=== PATIENT | female | born 1970 | race Caucasian/White ===

== ENCOUNTER 2018-09-06 06:18 | Day surgery (SDC) | payer OTHER, SELFPAY ==
[2018-09-02 14:15] VITALS: BMI 34.9
[2018-09-06] VITALS (23 sets, daily range): BP systolic 88–154; BP diastolic 50–107; PULSE 86–122; RESP 8–28; TEMP 36.4–37.4; O2SAT 91–99; BMI 47.3
--- NOTE | 2018-09-06 | DI.RAD.S_ITS ---
PROCEDURE: XR FOOT LT MIN 3V INDICATIONS: FLAT FOOT REPAIR TECHNIQUE: 2 views of the foot were acquired. COMPARISON: [facility] [place], MR, MR ANKLE LEFT WITHOUT CONTRAST, 08/20/2018, 10:14. [facility] [place], CR, XR FOOT 3 VIEWS WEIGHT BEARING BILATERAL, 07/31/2018, 9:14. FINDINGS: Intraoperative fluoroscopic images demonstrate calcaneal fixation. In addition, hardware is noted within the medial cuneiform, first and second metatarsals. IMPRESSION: Intraoperative images as above. Dictated by: Thais Yung M.D. on 09/06/2018 at 16:23 Approved by: Thais Yung M.D. on 09/06/2018 at 16:26
[2018-09-06] MEDS: LACTATED RINGERS 1,000 ML 42 ML IV ×3 (07:30→16:19)
--- NOTE | 2018-09-06 07:32 | PM.PREOP ---
Pre-operative Note Interval Note Pre-op Check: Yes History & Physical Reviewed by Physician and Yes Exam Performed Changes: No
[2018-09-06] MEDS: CEFAZOLIN 2 GM/100 ML FROZ.PIGGY IV ×3 (07:42→21:32)
[2018-09-06] MEDS: CEFAZOLIN VIAL 1 GM in SODIUM CHLORIDE 0.9% 100 ML 200 ML IV (07:42)
--- NOTE | 2018-09-06 08:23 | SUR.OPER ---
Lateral on moreau bag, head on pillow, gel axillary roll in place, bottom leg bent with gel pad under knee to foot, upper leg straight and supported with pillows. Upper arm supported by pillows and secured over bottom arm to padded arm board. Safety belt at abdomen, tape over blanket lower legs and hips
--- NOTE | 2018-09-06 08:25 | SUR.OPER ---
Supine on padded OR bed, head on pillow, arms secured on padded arm boards at <90 degrees abduction, legs uncrossed, safety belt at thigh, tape over blanket over lower legs.
[2018-09-06] MEDS: THROMBIN (BOVINE) 5,000 UNIT VIAL 5000 UNIT TOP (10:21)
[2018-09-06] MEDS: CEFAZOLIN VIAL 1 GM in SODIUM CHLORIDE 0.9% 100 ML IV (11:41)
--- NOTE | 2018-09-06 14:24 | SUR.OPER ---
family notified at 1330 about closing starting.
[2018-09-06] MEDS: BUPIVACAINE 0.25% (PF) VIAL 30 ML INJ (14:39)
[2018-09-06] MEDS: HYDROMORPHONE 2 MG INJ 0.5 MG IV ×3 (15:09→15:23)
[2018-09-06] MEDS: ONDANSETRON 4 MG/2 ML INJ IV (15:10)
--- NOTE | 2018-09-06 15:13 | SUR.PHASEI ---
Pt arrived moaning, hr 110s. Medicated with dilaudid per Dr. Olsen. o2 sat 89-91%ra, 4LNC applied.
[2018-09-06] MEDS: METOCLOPRAMIDE 10 MG/2 ML INJ IV (15:24)
[2018-09-06] MEDS: MIDAZOLAM 2 MG/2 ML VIAL IV (15:32)
--- NOTE | 2018-09-06 15:43 | SUR.PHASEI ---
Popliteal nerve block done by Dr. Olsen. Pt turned to her left side for the procedure and medicated with versed. Tolerated procedure well. O2 in place.
--- NOTE | 2018-09-06 15:50 | SUR.PHASEI ---
Nerve block from [id number]
--- NOTE | 2018-09-06 15:59 | SUR.PHASEI ---
Pt wakes and moans but then falls back asleep quickly.
--- NOTE | 2018-09-06 16:05 | SUR.PHASEI ---
Pt's spouse notified regarding patient status
[2018-09-06] MEDS: fentaNYL 100 MCG/2 ML INJ 50 MCG IV ×2 (16:19→16:32)
[2018-09-06] MEDS: LORazepam 2 MG/ML SYRINGE 0.5 MG IV ×2 (16:40→19:34)
--- NOTE | 2018-09-06 16:41 | SUR.PHASEI ---
Pt awake, moaning. C/o nausea. Medicated with Lorazepam per Dr. Moyer. Dr Moyer spoke to Dr. Trevino, admit orders pending.
--- NOTE | 2018-09-06 17:04 | SUR.PHASEI ---
Report called to Charla Moffett.
--- NOTE | 2018-09-06 17:41 | SUR.PHASEI ---
Pt transferred to the floor. Report given to Charla Moffett. VS stable. Pt transferred to the bed by slider board. Pt. intermittently retching and teary, c/o pain. IV saline locked. Ariadne CDI. Belongings bag in room. Spouse present.
[2018-09-06] MEDS: ONDANSETRON 4 MG ODT PO ×2 (17:42→23:50)
[2018-09-06] MEDS: OXYCODONE/ACETAMINOPHEN 5/325 TABLET 2 TAB PO ×2 (17:46→23:50)
[2018-09-06] MEDS: LACTATED RINGERS 1,000 ML 100 ML IV (18:06)
--- NOTE | 2018-09-06 18:27 | PC.NURSE ---
Pt to room 228 from PACU awake and retching without emesis. Slider board to transfer pt to bed. LLE elevated on multiple pillows to promote comfort. Pt is moaning when awake and tearful. Administered ODT prior to percocet for pain. Declines any oral intake other than ice chips and water. Ice to LLE. Spouse is present, attentive and involved in pt's care. Scripts given to spouse to fill prior to pt's discharge.
[2018-09-06] MEDS: HYDROMORPHONE 2 MG TABLET PO ×2 (19:34→22:10)
--- NOTE | 2018-09-06 19:44 | PC.NURSE ---
Pt has been able to sleep, but is now awake and crying in pain. Rates 15/10. Administered ativan to treat nausea and dilaudid po for pain. Pt is able to adjust position slightly in bed to promote comfort to LLE. LLE remains elevated with ice in place. Pt does report positive sensation to toes to left foot.
--- NOTE | 2018-09-06 20:30 | PM.PNPO.1 ---
Subjective Date Patient Seen: 09/06/18 Time Patient Seen: 18:31 Interval history: The patient is a 48-year-old female status post left flatfoot reconstruction and left stage IV flatfoot reconstruction with deltoid reconstruction, medial displacement calcaneal osteotomy, gastroc lengthening, medial cuneiform osteotomy, flexor digitorum longus transfer to the navicular and posterior tibialis tendon debridement. Patient was admitted to the acute care under observation for uncontrolled pain postoperatively. Her postop block does not appear to be working. Patient complains of pain in her foot and back of her leg. This is somewhat better after some antianxiety medications as well as IV pain medications. Patient endorses sensation to her toes and is able to lift her leg and wiggle her toes. Exam Vital Signs (past 8 hours): - 09/06/18 15:05 09/06/18 15:10 09/06/18 15:15 Temperature 97.6 F Pulse Rate 114 H 108 H 104 H Respiratory Rate 17 15 12 Blood Pressure 122/63 104/60 108/71 Pulse Oximetry 93 91 94 09/06/18 15:20 09/06/18 15:25 09/06/18 15:30 Temperature Pulse Rate 106 H 107 H 110 H Respiratory Rate 11 L 8 L 16 Blood Pressure 91/55 L 88/50 L 153/68 H Pulse Oximetry 94 94 95 09/06/18 15:35 09/06/18 15:40 09/06/18 15:51 Temperature Pulse Rate 106 H 107 H 105 H Respiratory Rate 8 L 10 L 9 L Blood Pressure 126/84 96/53 L 100/58 L Pulse Oximetry 93 92 94 09/06/18 16:00 09/06/18 16:11 09/06/18 16:20 Temperature Pulse Rate 107 H 107 H 111 H Respiratory Rate 9 L 10 L Blood Pressure 98/58 L 96/61 103/65 Pulse Oximetry 95 96 09/06/18 16:36 09/06/18 16:50 09/06/18 17:00 Temperature Pulse Rate 122 H 102 H 103 H Respiratory Rate 20 9 L 10 L Blood Pressure 108/74 118/79 114/72 Pulse Oximetry 96 94 95 09/06/18 17:20 09/06/18 18:00 09/06/18 18:30 Temperature 98.1 F 98.4 F 98.6 F Pulse Rate 111 H 106 H 112 H Respiratory Rate 28 H 22 28 H Blood Pressure 154/80 H 127/80 154/107 H Pulse Oximetry 95 96 95 09/06/18 18:35 09/06/18 19:58 Temperature 98.7 F Pulse Rate 103 H Respiratory Rate 24 Blood Pressure 125/59 L Pulse Oximetry 95 97 Oxygen Delivery Method Nasal Cannula Oxygen Flow Rate 2 Narrative Exam Narrative: Alert and oriented female answers questions appropriately. Appears in moderate distress complains of pain in her foot and calf. She is able to demonstrate active wiggling of her toes. Toes have brisk capillary refill and warm well perfused. Sensation grossly intact to light touch. Calf is soft. Able to flex and extend knee. Pulse rate mild tachycardia. Breathing is unlabored. Afebrile. Assessment & Plan Post-op Postoperative Procedures Operation Date: 09/06/18 07:45 Actual Procedures Side Surgeon p Gastrocnemius Recession, Reconstruction of ligament,deltoid. Transfer tendon flexor digitorum longus, Repair tendon tibialis posterior Left Jaymie Trevino MD s Calcaneal Osteotomy, Cotton Osteotomy Left Jaymie Trevino MD Postoperative day: 0 Postoperative status: marginal pain control Postoperative status narrative: Admitted for postoperative pain and ineffective peripheral nerve block Postoperative plan: routine post-op care Postoperative plan narrative: Patient will be nonweightbearing on the left lower extremity. She will have pain control with Percocet she also has oral Dilaudid available for breakthrough pain and IV pain medication. Patient also has Valium available for spasms. And will get IV Toradol had Q 6 hr while in the hospital for no more than 5 days. If she is discharged before 5 days she will get the remainder of the days as a 5 day oral Toradol prescription. She will start aspirin 325 mg daily for DVT prophylaxis on postop day 1. She will also utilize SCDs on the contralateral extremity while in the hospital. She will receive 24 hr of postoperative antibiotics Time Spent With Patient less than 15 minutes Quality VTE Deep Vein Thrombosis/Pulmonary Embolism Present on Admission: No
--- NOTE | 2018-09-06 21:17 | RT ---
Patient with nonsmoking history. No smoking cessation intervention needed.
--- NOTE | 2018-09-06 21:19 | PC.NURSE ---
Pt resting quietly in bed with LLE elevated on multiple pillows. 02 2l per nc in place with continuous pulse oximeter in place. Sats 96%. Rouses easily to voice. Offered oral fluids and foods and declines. Taking sips water/ice chips.
--- NOTE | 2018-09-06 21:27 | PM.OP.1 ---
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 Morbid obesity ICD E66.01 Tear deltoid ligament of left ankle, subsequent encounter ICD S93.422D Post-op diagnosis: same Procedure & Clinicians Procedure: Reconstruction secondary with allograft, ligament, deltoid, ankle left CPT 56005 Calcaneal osteotomy left CPT code 05750 Transfer, tendon, flexor digitorum longus, left CPT code 36731 Gastroc recession, left CPT 03762 Cotton osteotomy left foot, left CPT code 01982 Debridement posterior tibialis tendon left Same procedure as scheduled: Yes Indications: Patient is a 48-year-old female with a history of stage JAYNE flatfoot deformity with varus angulation. She has foot pain and deformity and has failed conservative treatment. She has been indicated for reconstruction to prevent further damage to her ankle joint as a joint sparing procedure and also for reconstruction for pain relief. The patient has an incompetent deltoid ligament secondary to previous trauma and progressive traumatic flatfoot. She has a valgus ankle deformity. She has minimal degenerative change on MRI and a flexible deformity. The patient has been indicated for deltoid reconstruction flatfoot reconstruction. He has also been indicated for a gastroc recession due to her gastroc equinus. Risks benefits and alternatives to the procedure were discussed with the patient in detail. Discussed that these risks include but are not limited to infection, malunion, nonunion, delayed union, wound healing problems, need for additional procedures, persistence of pain, nerve and vessel injury, progression of arthritis, painful hardware, DVT, pulmonary embolism, cardiopulmonary complications of general anesthesia, stroke paralysis or . Patient understands and agrees with the plan would like to proceed with surgery. Consent was signed in the office. Patient understands that bone and soft tissues typically heal over a 3-4 months but it may be 6-9 months for recovery back to most activities of daily living. Patient understands the importance of elevation above the heart level for the 1st 2-3 weeks after surgery for swelling and pain control. Also discussed risk factors for DVT. Patient does not have any history of thromboses or other risk factors other than the impending surgery. DVT prophylaxis will be 325 mg of aspirin daily for her period of nonweightbearing which would be approximately 6 weeks. Patient understands and agrees with the plan. Surgeon: Jaymie Trevino Metal Off Bearer: Juanita Lewis Anesthesia Type: General, Peripheral nerve block and Local Operative Notes Findings: The patient has valgus ankle instability and incompetent deltoid ligament as well as a valgus and pes planus deformity and gastroc contracture. When the forefoot and ankle are corrected the patient has residual forefoot supination. Operative findings: In the operating room the patient's ankle was up for dorsiflexed with knee extension. This was found to only get to neutral and the patient was noted to have approximately 20? of dorsiflexion with the knee bent therefore the patient was indicated for a gastroc recession. This was performed with excellent correction of the ankle range of motion to above 10? of dorsiflexion with the knee extended. The patient is valgus hindfoot deformity was addressed with a medial displacement calcaneal osteotomy stabilized by (2)6.7 mm cannulated Arthrex screws. The deltoid ligament was noted to be incompetent was copious scar tissue in this area and heterotopic ossification at the medial malleolus. This was excised and the deltoid was reconstructed utilizing the semi tendinosis allograft was fixed to the tibia with an ACL tight rope into the talus and calcaneus with bio tenodesis screws. The posterior tibialis tendon was noted to be extremely thickened to approximately 3 times its normal size with extensive tendinosis and backside longitudinal tearing. The tendon was excised and the FDL tendon was transferred to the navicular and secured using a 4.75 bio tenodesis screw. The posterior tibialis tendon was tenodesed to the FDL proximally. The patient was noted to have residual forefoot varus and a opening wedge osteotomy of the medial cuneiform was performed. This was fixed with a 8 mm cotton wedge osteotomy plate from Arthrex and four cortical screws. 1 cc of DBX was used to fill into the graft site. Closure Type: primary Specimen(s): none sent Implants & Drains: Arthrex bio tenodesis screws 4.75mm, 4.75mm, 4.75mm Arthrex ACL tight rope Allograft semi tendinosis 5mm x 22mm (2) Arthrex 6.7 cannulated screws 45 and 50mm short thread Applied: other (Splint) Estimated Blood Loss (mL): 50 Blood products transfused: none Tourniquet time (min): 120 Procedure in detail: In the preoperative holding area the patient was seen in the appropriate sites were marked. Informed consent was confirmed and final questions were answered. The patient was brought back to the operating room. Patient was positioned supine on the operating table and general anesthesia was administered. Following successful level of anesthesia the patient was examined the patient did have an gastroc contracture this was confirmed with 0? of dorsiflexion with the knee fully extended and approximately 15-20 degrees with the knee bent. Therefore a gastroc recession was selected. Patient was then prepped and positioned on the operative table on a beanbag in the lateral position with an axillary roll and a well-padded thigh tourniquet. An SCD was placed on the non operative leg. The surgical level was prepped and draped in the standard sterile fashion. An Esmarch bandage was utilized to exsanguinate the extremity and the tourniquet was raised on the thigh to 300 mm of mercury. Gastroc lengthening: A slightly medial to midline incision was marked out approximately 14 cm proximal to the proximal aspect of the heel. The incision was 4 cm long. This was carried down through subcutaneous tissue with care to avoid the sural nerve and vessel. The fascia was opened and the tendon was isolated from medial to lateral. This was then incised transversely in length and approximately 2.5 cm. This was then tacked down proximally. Incision was irrigated and closed with 2 O Vicryl deep and 4 O nylon in the skin. Medial icing calcaneus osteotomy. Incision was made along the lateral border of the calcaneus, staying posterior to the sural nerve and peroneal tendons. Dissection was carried through the skin subcutaneous tissues and then bluntly down to the level of the lateral wall of the calcaneus. Once we had good subperiosteal exposure the baby Hohmann retractors were placed around the calcaneal borders. And a transverse osteotomy was made across the body of the calcaneus. The osteotomy was carried gently through the medial wall and finished with osteotomes. Lamina ex assistant/program director was placed, the periosteum was elevated off the medial wall. The calcaneal width was measured and shifted approximately 6 mm. Then we percutaneously fixed this with 26.7 mm cannulated screws that were countersunk. This provided solid fixation and appropriate correction on intraoperative fluoroscopy. The excess bone was then trimmed and tamped along the lateral wall. Deep tissues were closed with 2 O Vicryl in the subcutaneous with 4 0 Monocryl on the skin with 4 O nylon. The posterior heel wounds were closed with 3 O nylon. Deltoid reconstruction: At this point the tourniquet was released. The patient was repositioned letting the beanbag down and rolling the patient to a supine position. Once appropriate time and passed the tourniquet was elevated again. Now the leg was able to externally rotate a medial incision was made which began initially approximately 6 cm above the medial malleolus extending posterior medially along the medial malleolus and posterior tibialis tendon on the medial border of the foot towards the 1st tarsometatarsal joint medially. This was carried down through the skin and subcutaneous tissue. There was copious scar tissue and callus and heterotopic bone at the medial aspect of the medial malleolus from previous trauma. As this was excised to expose the medial malleolus. The deltoid was of gross incompetence and the patient states ankle was in valgus alignment and unstable. The origins of the deep portion of the deltoid which was incompetent was located on the talus as well as the targeted start point for the medial tunnel on the tibia for the deltoid reconstruction. Additionally the posterior tibialis tendon sheath was opened the posterior tibialis tendon was noted to be very thickened and tendinotic and incompetent. This was tenotomized and retracted posterior and later excised. At the same time the FDL tendon was also exposed through the posterior tibialis tendon sheath proximally and then distally at the master knot of Otto. The FDL and F HL were tenodesed with a loose throw of 2 0 FiberWire just distal to the transection of the FDL distally. Once the exposure and these other tendons were isolated and retracted away from the deltoid reconstruction the calcaneal a deltoid tunnel at the sustentacular was exposed and located with the assistance of fluoroscopy to achieve a trajectory away from the subtalar joint and missing the osteotomy screws. Once the tunnel sites were established in the talus and calcaneus and tibia which was directed anterior laterally these were then appropriately reamed. Of note an 1st tibial passage attempt was felt to be too anterior in the tibia therefore this was pre drilled more proximal and lateral. The allograft was sized to a 5 by 22 mm and hamstring allograft. This was whipstitched in 1 end. Secured in the ACL tight rope this was measured to go through a a 6.5 mm tunnel there for the 6.5 mm Reamer was utilized in the tibia and drilled for approximately 40 mm. The graft tight rope were then passed through the tibia and to the lateral border of the tibia where fluoroscopic guidance demonstrated the button in appropriate position. Next the calcaneal tunnel was overdrilled with a 5 mm Reamer and the whipstitched ends of the allograft was passed through the calcaneus and out the lateral side. This was secured into the calcaneus with a 4.75 bio tenodesis screw. Unfortunately this bio tenodesis screw broke off during insertion. The graft was found to be securely affixed with approximately half the a bio tenodesis screw length and the screw was unable to be removed and exchanged but was felt to fix the tendon securely therefore it was left in place. Next attention turned to the talar hole which was overdrilled with a 5.5 mm drill and the talar limb was then whipstitched measured and cut placed through the talus. Sutures were used to pull this taunt of while a 4.75 bio tenodesis screw was placed. This achieved good tension in the deltoid and corrected the valgus alignment of the tibiotalar joint on fluoroscopy.\ FDL transfer: The previously harvested FDL tendon was then whip stitched using the fiber loop. Was measured easily passing through a 5 mm Sizer. Dissection was completed dorsum plantar on the navicular. Wire was placed from plantar medial to dorsal lateral on the navicular and checked on C-arm. This was then overdrilled to create a 5 mm tunnel. The sutures from the tendon graft were passed from medial to lateral through the navicular tunnel and out the dorsum of the foot. These were utilized to pull the graft into the tunnel and pulled tension what was considered cured with a 4.75 bio tenodesis screw this provided excellent motion and tension. The posterior tibialis tendon was then tenodesed to the FDL proximally. Cotton osteotomy medial cuneiform opening wedge osteotomy: The patient's forefoot was noted to have residual varus and supination. Because of her relatively intact articular surfaces a medial cuneiform opening wedge osteotomy was planned. This was initially attempted through the existing medial exposure however the tibialis anterior tendon was directly in the path of a midbody osteotomy therefore a separate dorsal medial incision over the medial cuneiform was made this was taken down between the extensor hallucis longus and hallucis brevis to bone. The joint surfaces proximal and distal were identified. A transverse osteotomy was made started with a sagittal saw with care to preserve the plantar periosteum this was slowly levered open with osteotomes followed by a distractor. Initially the bio Poncho edges from Arthrex were trialed and a 7.5 mm trial was placed which did provide some correction however there was still some play in this in order to get full supination correction. Unfortunately the 7.5 implant was not available. Therefore we made this which to the cotton wedge plate where it 8 mm plate was available this was trialed and provided excellent correction and stability. Therefore this was implanted and secured with 4 screws. The opening wedge from the osteotomy was filled with a DBX. Correction was evaluated on final fluoroscopic images confirming correction from all the procedures and excellent alignment. The tourniquet had been let down at this point thorough irrigation took place. The retinacula was closed with 2 O Vicryl the deep tissues were also closed with 2 O Vicryl subcutaneous closure of all incisions was done with 4 0 Monocryl and skin with a 4 O nylon and mel. A sterile bulky dressing and stirrup splint were applied and the patient was then transported to the recovery room in good condition. Complications: none Condition: stable Disposition: Acute Care Plan for aftercare: The patient had a postoperative peripheral nerve block performed in the PACU for postoperative pain control. The patient's postoperative nerve block did not appear to take affect and the patient was having on controlled pain. She was admitted to the acute care unit for pain control overnight with anticipation of discharge home in the morning. The patient will be nonweightbearing on the left lower extremity. She will keep it elevated above her heart level for the next 2-3 weeks for swelling and pain control. She will have p.o. and IV pain medications on the floor. She will have 24 hr of postoperative antibiotics. She will start DVT prophylaxis with 325 mg of aspirin daily on postoperative day 1.
[2018-09-06] MEDS: KETOROLAC 30 MG/ML VIAL IV (21:32)
[2018-09-06] MEDS: CEFAZOLIN 1 GM/50 ML FROZ.PIGGY IV (21:33)
[2018-09-06] MEDS: diazePAM 5 MG TABLET PO (22:10)
--- NOTE | 2018-09-06 22:20 | PC.NURSE ---
Reluctant to get out of bed to commode. Bedpan use and pt able to void without difficulty. States pain <6 and is more engaging and conversant. Moving LLE independently to achieve position of comfort. IV antibiotics infusing as ordered. SCD on RLE. Before this story writer could exit pt's room, pt becomes easily tearful and c/o pain 8/10. States increasing rapidly. Equally warm and pink exposed toes to left foot. Splint with tip wrap intact to LLE. Administered po dilaudid and po valium for spasms. IV dilaudid held as pt taking orals prior to this order being entered. Spouse remains attentive and present @ bedside.
[2018-09-07] VITALS: O2SAT 96
[2018-09-07] MEDS: LORazepam 2 MG/ML SYRINGE 0.5 MG IV (00:03)
[2018-09-07 04:01] VITALS: O2SAT 95
[2018-09-07] MEDS: LACTATED RINGERS 1,000 ML 100 ML IV (04:45)
[2018-09-07] MEDS: CEFAZOLIN 2 GM/100 ML FROZ.PIGGY IV (04:46)
[2018-09-07] MEDS: CEFAZOLIN 1 GM/50 ML FROZ.PIGGY IV (04:46)
[2018-09-07 05:11] VITALS: BP 115/64; PULSE 102; RESP 16; TEMP 37.2; O2SAT 93
[2018-09-07] MEDS: KETOROLAC 30 MG/ML VIAL IV (06:28)
[2018-09-07 07:58] VITALS: BP 133/55; PULSE 103; RESP 16; TEMP 36.8; O2SAT 95
[2018-09-07 08:05] VITALS: O2SAT 95
[2018-09-07] MEDS: HYDROMORPHONE 2 MG TABLET PO ×2 (08:20→10:59)
[2018-09-07] MEDS: ASPIRIN EC 325 MG TABLET PO (09:06)
--- NOTE | 2018-09-07 10:01 | PM.DS.1 ---
History of Present Illness Date Patient Seen: 09/07/18 Time Patient Seen: 10:02 Chief complaint: [id number] LEFT ANKLE Narrative: Details of the patient's H&P can be found like electronic chart. Discharge Providers Primary care physician: Tobin Simms MD Consults: 09/02/18 15:27 Consult to Anesthesiology Routine Comment: Please call patient re: 3 week post-op hoarseness Consulting Provider: Anesthesiologist Reason for consultation: See anesthesia review 09/06/18 07:03 Consult to Anesthesiology Routine Comment: Consulting Provider: Anesthesiologist Reason for consultation: Post operative pain managment Has provider been notified: No 09/06/18 16:45 Consult to Physical Therapy Evaluate & Treat Comment: Physician Instructions: Evaluate and Treat Discharge provider: Juanita Lewis PA-C Discharge Date: 09/07/18 Summary Discharge Diagnosis: Posterior tibialis tendon dysfunction of both lower extremities M 76.821 Equinus contracture of the ankle M24.573 Morbid obesity ICD E66.01 Tear deltoid ligament of left ankle, subsequent encounter ICD S93.422D Hospital Course: Patient was admitted and taken the operating room where she had left foot surgery by Dr. Trevino. She was admitted to the floor for pain control issues because her anesthesia block was not working. Postop day 1 patient was feeling well, was able to ambulate with physical therapy but nonweightbearing on the left lower extremity and able to urinate without difficulty. Patient was discharged home with postoperative pain medication. Aspirin 325 mg for DVT prophylaxis Zofran for nausea and Colace for constipation. She is to be nonweightbearing on left lower leg. She will follow up in office in 10-[address] Trevino. Status at Discharge Cognitive/behavioral status at discharge: Alert orient x3 Functional status at discharge: uses cane/walker Overall status at discharge: patient is progressing back to baseline Time Spent with Patient Less than 30 minutes Exam Vital Signs (past 8 hours): - 09/07/18 04:01 09/07/18 05:11 09/07/18 07:58 Temperature 99.0 F 98.3 F Pulse Rate 102 H 103 H Respiratory Rate 16 16 Blood Pressure 115/64 133/55 L Pulse Oximetry 95 93 95 09/07/18 08:05 Temperature Pulse Rate Respiratory Rate Blood Pressure Pulse Oximetry 95 Oxygen Delivery Method Room Air Oxygen Flow Rate 0 Narrative Exam Narrative: Patient is sitting in chair. Alert orient x3. Appears comfortable. Left lower leg and a postoperative splint. Can wiggle all toes. Full sensation in toes. Brisk capillary refill in toes. Discharge Plan Discharge Plan Patient Disposition: Home Discharge comment: Nonweightbearing on the lower extremity. Discharge Med Rec/Prescriptions Prescriptions: New aspirin 325 mg tablet,delayed release (DR/EC) 325 mg PO DAILY Qty: 42 RF: 0 docusate sodium [Colace] 100 mg capsule 100 mg PO BID Qty: 30 RF: 0 ondansetron [Zofran ODT] 4 mg tablet,disintegrating 4 mg PO Q6-8H PRN (Reason: nausea and vomiting) Qty: 10 RF: 1 hydromorphone 2 mg Tablet 2 mg PO Q4H PRN (Reason: Pain, Severe (7-10)) Qty: 42 RF: 0 Follow up/Referrals: Jaymie Trevino MD [Physician] - (Follow-up scheduled date and time. Contact the office with any issues or concerns.) Tobin Simms MD [Primary Care Provider] - Discharge Orders: Discharge (Order); Ordered 09/07/18 Ordered By: Jaymie Trevino Provider Discharge Instructions Diet: Diet as Tolerated Activity: Nonweightbearing left leg. Elevate. Other treatments: At-Home Instructions - Dr. Trevino Surgery: left flatfoot reconstruction Cast/Splint/Dressing Care Instructions 1) Keep cast/dressing clean and dry. 2) May bathe - but cast/dressing must remain dry. 3) Should the cast become wet, you need to come into emergency department or call your physician's clinic immediately for cast removal and replacement. Moisture can cause skin breakdown and lead to infection if left untreated. 4) Do not stick any sharp object down the cast to itch, as this can cause scrapes/cuts/punctures which can lead to infection. 6) Observe for increasing pain in the extremity with the cast, finger/toe-tips turning blue/purple, or numbness and tingling in your toes/fingers. Should any of these symptoms arise, you need to be seen immediately for evaluation of swelling and increasing compartment pressures within your affected extremity. 7) Keep your affected extremity elevated - Toes Above your Nose - This is cotto in the first two weeks after surgery to minimize swelling. 8) You may ice your extremity, being careful to prevent melting ice from saturating into the splint/cast. Activity No heavy lifting greater than 10 pounds. No driving while on narcotic pain medication. Do not get your dressing/cast/splint wet! You must remain non-weight bearing on your operative extremity. Use crutches or a walker for ambulation. No driving until you are otherwise instructed by your physician. This will be addressed at your first follow-up appointment. Discharge Pain Medications You will be given a prescription for pain medication. You should start taking this the same day after your surgery. Wean off as tolerated. Do not wait to take the pain medication until the pain is severe, as it will be difficult to catch up once this occurs. The pain medication usually reaches its full effect ~1 hour after ingesting. If you have been sent home on Colace, this medication should be taken until you are off all narcotic (i.e. Vicodin, Percocet, Oxycodone, etc) pain medications, to prevent constipation. You may also obtain this or another stool softener over the counter to prevent or alleviate constipation. Percocet or Vicodin have Tylenol in their ingredient lists. You must be careful not to exceed 3,000mg (3 grams) of Tylenol, from all sources, within a single 24-hr period. This means that you may not take more than 10 pills within a 24-hr period. Do NOT take Regular or Extra Strength Tylenol when taking your Percocet or Vicodin medications. -Some common side effects of the narcotic pain medications (Percocet, Oxycodone, Vicodin, etc.) include nausea and itching. Benadryl is a great over the counter medication that helps calm your stomach, decreases your anxiety levels, and minimizes the itching. You can easily purchase this at your local pharmacy as an hmdl-llb-yykqjkr medication. Please abide by the instructions as printed on the bottle. If your nausea persists, make sure to take small amounts of crackers or other handle machine operator foods. Follow-Up/Emergency Contacts Please call for an appointment in either [place] or [place], if one has not been scheduled. Follow up 2 week after surgery. [phone] apt: 09/20/18 1:20 PM [facility] [place] Contact the office if you have any of the following: Painful swelling or numbness Unrelenting pain Fever (over 101- it is normal to have a low grade fever for the first day or two following surgery) or chills Redness around the incisions Color changes Continuous bleeding or drainage from the incision (a small amount is expected) Excessive nausea or vomiting Difficulty breathing If you have an emergency that requires immediate attention, proceed to the nearest emergency room. Blood Clot Prophylaxis You will need to complete a total 6-week (42 days) course of Aspirin (325 mg daily) after surgery, to minimize the risk of blood clots following surgery. You may alternatively purchase or use itse-mio-gfiyair generic equivalent Aspirin. If you already have baby Aspirin (81mg) at home, you can take 4 baby Aspirin to total 324mg for the equivalent dose. Pain Medications: It is the policy of [facility] that narcotic medications will only be refilled during office hours. Additionally, due to the alarming rate of narcotic pain medication abuse/dependence, it has become necessary for physician practices to closely manage patient use of prescription narcotic pain relievers, such as Vicodin ([place]), Percocet, and Oxycodone products. Narcotic pain management in the postoperative period may not exceed 6 weeks. If narcotic pain management is required beyond 90 days, then a referral to a Chronic Pain Specialist will be made. If a request for a medication prescription has been made, the physician must review your chart prior to authorizing the request. Please be patient with office staff. If you call during patient hours, your call may not be returned until the end of the day. Dr. Jaymie Trevino [address] [email or web address] Skin/Wound/Dressing Care Report to your healthcare provider any signs of infection, such as:: chills, fever, night sweats, increased pain and unusual drainage Dressing: Keep dressing dry and intact Visit Report/Discharge Packet Instructions: How to Take Care of Your Cast, Hydromorphone Stand Alone Forms: Surgery Discharge Visit Report Forms: Stroke Signs & Symptoms Discharge Data Primary Care Provider: Tobin Simms Attending Provider: Jaymie Trevino VTE Deep Vein Thrombosis/Pulmonary Embolism Present on Admission: No
--- NOTE | 2018-09-07 10:05 | P.DS_ITS ---
History of Present Illness Date Patient Seen: 09/07/18 Time Patient Seen: 10:02 Chief complaint: [id number] LEFT ANKLE Narrative: Details of the patient's H&P can be found like electronic chart. Discharge Providers Primary care physician: Tobin Simms MD Consults: 09/02/18 15:27 Consult to Anesthesiology Routine Comment: Please call patient re: 3 week post-op hoarseness Consulting Provider: Anesthesiologist Reason for consultation: See anesthesia review 09/06/18 07:03 Consult to Anesthesiology Routine Comment: Consulting Provider: Anesthesiologist Reason for consultation: Post operative pain managment Has provider been notified: No 09/06/18 16:45 Consult to Physical Therapy Evaluate & Treat Comment: Physician Instructions: Evaluate and Treat Discharge provider: Juanita Lewis PA-C Discharge Date: 09/07/18 Summary Discharge Diagnosis: Posterior tibialis tendon dysfunction of both lower extremities M 76.821 Equinus contracture of the ankle M24.573 Morbid obesity ICD E66.01 Tear deltoid ligament of left ankle, subsequent encounter ICD S93.422D Hospital Course: Patient was admitted and taken the operating room where she had left foot surgery by Dr. Trevino. She was admitted to the floor for pain control issues because her anesthesia block was not working. Postop day 1 patient was feeling well, was able to ambulate with physical therapy but nonweightbearing on the left lower extremity and able to urinate without difficulty. Patient was discharged home with postoperative pain medication. Aspirin 325 mg for DVT prophylaxis Zofran for nausea and Colace for constipation. She is to be nonweightbearing on left lower leg. She will follow up in office in 10-[address] Trevino. Status at Discharge Cognitive/behavioral status at discharge: Alert orient x3 Functional status at discharge: uses cane/walker Overall status at discharge: patient is progressing back to baseline Time Spent with Patient Less than 30 minutes Exam Vital Signs (past 8 hours): - 09/07/18 04:01 09/07/18 05:11 09/07/18 07:58 Temperature 99.0 F 98.3 F Pulse Rate 102 H 103 H Respiratory Rate 16 16 Blood Pressure 115/64 133/55 L Pulse Oximetry 95 93 95 09/07/18 08:05 Temperature Pulse Rate Respiratory Rate Blood Pressure Pulse Oximetry 95 Oxygen Delivery Method Room Air Oxygen Flow Rate 0 Narrative Exam Narrative: Patient is sitting in chair. Alert orient x3. Appears comfortable. Left lower leg and a postoperative splint. Can wiggle all toes. Full sensation in toes. Brisk capillary refill in toes. Discharge Plan Discharge Plan Patient Disposition: Home Discharge comment: Nonweightbearing on the lower extremity. Discharge Med Rec/Prescriptions Prescriptions: New aspirin 325 mg tablet,delayed release (DR/EC) 325 mg PO DAILY Qty: 42 RF: 0 docusate sodium [Colace] 100 mg capsule 100 mg PO BID Qty: 30 RF: 0 ondansetron [Zofran ODT] 4 mg tablet,disintegrating 4 mg PO Q6-8H PRN (Reason: nausea and vomiting) Qty: 10 RF: 1 hydromorphone 2 mg Tablet 2 mg PO Q4H PRN (Reason: Pain, Severe (7-10)) Qty: 42 RF: 0 Follow up/Referrals: Jaymie Trevino MD [Physician] - (Follow-up scheduled date and time. Contact the office with any issues or concerns.) Tobin Simms MD [Primary Care Provider] - Discharge Orders: Discharge (Order); Ordered 09/07/18 Ordered By: Jaymie Trevino Provider Discharge Instructions Diet: Diet as Tolerated Activity: Nonweightbearing left leg. Elevate. Other treatments: At-Home Instructions - Dr. Trevino Surgery: left flatfoot reconstruction Cast/Splint/Dressing Care Instructions 1) Keep cast/dressing clean and dry. 2) May bathe - but cast/dressing must remain dry. 3) Should the cast become wet, you need to come into emergency department or call your physician's clinic immediately for cast removal and replacement. Moisture can cause skin breakdown and lead to infection if left untreated. 4) Do not stick any sharp object down the cast to itch, as this can cause scrapes/cuts/punctures which can lead to infection. 6) Observe for increasing pain in the extremity with the cast, finger/toe-tips turning blue/purple, or numbness and tingling in your toes/fingers. Should any of these symptoms arise, you need to be seen immediately for evaluation of swelling and increasing compartment pressures within your affected extremity. 7) Keep your affected extremity elevated - Toes Above your Nose - This is cotto in the first two weeks after surgery to minimize swelling. 8) You may ice your extremity, being careful to prevent melting ice from saturating into the splint/cast. Activity No heavy lifting greater than 10 pounds. No driving while on narcotic pain medication. Do not get your dressing/cast/splint wet! You must remain non-weight bearing on your operative extremity. Use crutches or a walker for ambulation. No driving until you are otherwise instructed by your physician. This will be addressed at your first follow-up appointment. Discharge Pain Medications You will be given a prescription for pain medication. You should start taking this the same day after your surgery. Wean off as tolerated. Do not wait to take the pain medication until the pain is severe, as it will be difficult to catch up once this occurs. The pain medication usually reaches its full effect ~1 hour after ingesting. If you have been sent home on Colace, this medication should be taken until you are off all narcotic (i.e. Vicodin, Percocet, Oxycodone, etc) pain medications, to prevent constipation. You may also obtain this or another stool softener over the counter to prevent or alleviate constipation. Percocet or Vicodin have Tylenol in their ingredient lists. You must be careful not to exceed 3,000mg (3 grams) of Tylenol, from all sources, within a single 24-hr period. This means that you may not take more than 10 pills within a 24-hr period. Do NOT take Regular or Extra Strength Tylenol when taking your Percocet or Vicodin medications. -Some common side effects of the narcotic pain medications (Percocet, Oxycodone , Vicodin, etc.) include nausea and itching. Benadryl is a great over the counter medication that helps calm your stomach, decreases your anxiety levels, and minimizes the itching. You can easily purchase this at your local pharmacy as an cvpa-cne-wkegblt medication. Please abide by the instructions as printed on the bottle. If your nausea persists, make sure to take small amounts of crackers or other auto fleet maintenance manager foods. Follow-Up/Emergency Contacts Please call for an appointment in either [place] or [place], if one has not been scheduled. Follow up 2 week after surgery. [phone] apt: 09/20/18 1:20 PM [facility] [place] Contact the office if you have any of the following: Painful swelling or numbness Unrelenting pain Fever (over 101- it is normal to have a low grade fever for the first day or two following surgery) or chills Redness around the incisions Color changes Continuous bleeding or drainage from the incision (a small amount is expected) Excessive nausea or vomiting Difficulty breathing If you have an emergency that requires immediate attention, proceed to the nearest emergency room. Blood Clot Prophylaxis You will need to complete a total 6-week (42 days) course of Aspirin (325 mg daily) after surgery, to minimize the risk of blood clots following surgery. You may alternatively purchase or use tdcy-wou-pneyddy generic equivalent Aspirin. If you already have baby Aspirin (81mg) at home, you can take 4 baby Aspirin to total 324mg for the equivalent dose. Pain Medications: It is the policy of [facility] that narcotic medications will only be refilled during office hours. Additionally, due to the alarming rate of narcotic pain medication abuse/dependence, it has become necessary for physician practices to closely manage patient use of prescription narcotic pain relievers, such as Vicodin ([place]), Percocet, and Oxycodone products. Narcotic pain management in the postoperative period may not exceed 6 weeks. If narcotic pain management is required beyond 90 days, then a referral to a Chronic Pain Specialist will be made. If a request for a medication prescription has been made, the physician must review your chart prior to authorizing the request. Please be patient with office staff. If you call during patient hours, your call may not be returned until the end of the day. Dr. Jaymie Trevino [address] [email or web address] Skin/Wound/Dressing Care Report to your healthcare provider any signs of infection, such as:: chills, fever, night sweats, increased pain and unusual drainage Dressing: Keep dressing dry and intact Visit Report/Discharge Packet Instructions: How to Take Care of Your Cast, Hydromorphone Stand Alone Forms: Surgery Discharge Visit Report Forms: Stroke Signs & Symptoms Discharge Data Primary Care Provider: Tobin Simms Attending Provider: Jaymie Trevino VTE Deep Vein Thrombosis/Pulmonary Embolism Present on Admission: No
--- NOTE | 2018-09-07 10:05 | PT.IIE ---
Current Diagnoses Morbid (severe) obesity due to excess calories (09/06/18) Contracture, unspecified ankle (09/06/18) Posterior tibial tendinitis, right leg (09/06/18) Posterior tibial tendinitis, left leg (09/06/18) Sprain of deltoid ligament of left ankle, subsequent encounter (09/06/18) Surgery Performed Operation Date: 09/06/18 07:45 Actual Procedures p Gastrocnemius Recession, Reconstruction of ligament,deltoid. Transfer tendon flexor digitorum longus, Repair tendon tibialis posterior(Left) - Jaymie Trevino MD s Calcaneal Osteotomy, Cotton Osteotomy(Left) - Jaymie Trevino MD Surgical History (Last Updated 09/02/18 @ 14:51 by Bia Jansen, RN) H/O: (Acute ~2001) History of removal of Port-a-Cath (Acute) LAP-BAND surgery status (Acute ~2006) S/P mastectomy, bilateral (Acute ~09/2017) Medical History (Last Updated 09/02/18 @ 15:23 by Bia Jansen, RN) Equinus contracture of ankle (Acute) History of diabetes mellitus, type II (Acute) Malignant neoplasm of right breast (Acute ~02/2017) Numbness (Acute) Obesity (BMI 30.0-34.9) (Acute) Posterior tibial tendon dysfunction (PTTD) of both lower extremities (Acute) Tear of deltoid ligament of left ankle (Acute) Weight loss, intentional (Acute) Physical Therapy Inpatient Evaluation/Re-Eval M1 PT/OT-IP Prior Functional Status Start: 09/07/18 10:17 Freq: NEEDED Status: Active Protocol: Document 09/07/18 10:05 [facility] (Rec: 09/07/18 10:37 [facility] [id number]) Medical Review Prior Functional Status Medical History Reviewed Yes Mobility and Gait indep. ambulation outdoors without device Social History Household Members spouse children friend(s) Living Arrangements House Number of Floors (Floors) One Floor Number of Stairs To Enter/Railing? ramped entry Home Environment High Toilet Home Equipment Crutches Additional Social History Comment knee scooter; M2 PT-IP Current Condition Start: 09/07/18 10:17 Freq: NEEDED Status: Active Protocol: Document 09/07/18 10:05 [facility] (Rec: 09/07/18 10:37 [facility] [id number]) Physical Therapy Current Condition Current Condition Evaluation Date 09/07/18 Treatment Diagnosis L foot surgery, impaired mobility Onset Date 09/06/18 Precautions Other Precautions Procedure: Reconstruction secondary with allograft, ligament, deltoid, ankle left CPT 43414 Calcaneal osteotomy left CPT code 58741 Transfer, tendon, flexor digitorum longus, left CPT code 60974 Gastroc recession, left CPT 37128 Cotton osteotomy left foot, left CPT code 06650 Debridement posterior tibialis tendon left Weight Bearing Status Weight Bearing Status Non-Weight Bearing M3 PT-IP Subjective Start: 09/07/18 10:17 Freq: NEEDED Status: Active Protocol: Document 09/07/18 10:05 [facility] (Rec: 09/07/18 10:37 [facility] [id number]) Subjective Physical Therapy Visit Type Type Initial Evaluation Visit Start Time 09:19 Visit Stop Time 10:00 Total Visit Minutes 41 Number of PILE OPERATOR Visits 0 Physical Therapy Visit Comments Patient Comments pt states some pain but overall doing better. Therapy Pain Assessment Location Lt Foot Intensity 5 Scale Used Numeric (1 - 10) M4 PT-IP Mobility and Gait Start: 09/07/18 10:17 Freq: NEEDED Status: Active Protocol: Document 09/07/18 10:05 [facility] (Rec: 09/07/18 10:37 [facility] [id number]) PT-Bed Mobility Assessment Supine to Sit Supine to Sit Independent Scooting Scooting to Edge of Bed Independent PT-Transfer Assessment Sit to and From Stand Sit to and from Stand Independent Equipment Transfer Assistive Device Gait Belt Axillary Crutches Transfers Transfer Destination Chair Toilet Transfer Technique Stand Step Pivot Transfer Ability Level of Assist Standby Assistance Gait Assessment Gait Gait Assistance Required: Standby Assistance Distance (Feet) 25 Assistive Devices Assistive Device Gait Belt Axillary Crutches Gait Deviations General Gait Pattern Within Normal Limits Factors Limiting Gait Function Factors Limiting Gait Function Decreased Activity Tolerance Decreased Strength Pain Comments Gait Comments Swing-through pattern. PT-Balance Assessment Sitting Balance and Reactions Static Sitting Balance Ability Good Dynamic Sitting Balance Ability Good Standing Balance and Reactions Static Standing Balance Ability Good Dynamic Standing Balance Ability Fair Device Used B axillary crutches M5 PT-IP Objective Assessments Start: 09/07/18 10:17 Freq: NEEDED Status: Active Protocol: Document 09/07/18 10:05 [facility] (Rec: 09/07/18 10:37 [facility] [id number]) Orientation Orientation/Cognition Level of Alertness Alert Orientation Name Age Birthday Month Date Year Day of Week Place Situation Strength Comments Strength Comments RLE WNL; able to wiggle toes L foot Coordination Assessment Gross Coordination Gross Coordination WNL Sensation Assessment Sensation Gross Sensation WNL M7 PT-IP Assessment and Plan Start: 09/07/18 10:17 Freq: NEEDED Status: Active Protocol: Document 09/07/18 10:05 [facility] (Rec: 09/07/18 10:37 [facility] [id number]) PT Summary Assessment and Plan Potential Rehabilitation Potential Excellent Status of Condition at Evaluation Stable Summary Impairments Pain ROM Gait Activity Tolerance Progress Towards Goals Safe For Discharge Assessment Summary Pt is able to mobilize indep. in bed, and appears to have good control with using the axillary crutches. Pt has no steps to enter, and family support at home. Overall, pt appears appropriate for home d /c when medically stable, she is aware of her NWB status on the LLE. Frequency of Treatment Frequency Of Treatment Discharge Discharge Recommendations PT Discharge Recommendations Home with Assistance Outpatient PT
[2018-09-07] MEDS: ACETAMINOPHEN 325 MG TABLET 650 MG PO (11:03)
--- NOTE | 2018-09-07 12:30 | PC.NURSE ---
Discharge: Pt dressed in own clothes, educated on discharge instructions including how to position her ankle optimally for the ride home which is to avoid a dependent position and to have foot on the back bench seat. Pt acknowledge instructions. Pt was medicated and give an ice pouch for the ride home. Pt left in a wheelchair to [facility] accompanied by spouse, Justo, and RN.
== END 2018-09-07 12:33 | disposition home or self-care (01) ==
LOC: OR 07:42 → AC 17:37
PROVIDERS: PCP Family Medicine; Visit Provider Orthopaedic Surgery Foot and Ankle Surgery
PROC: (CPT 27687; principal; 2018-09-06 07:45)
PROC: 0QBP0ZZ Excision of Left Metatarsal, Open Approach (ICD-10-PCS; CPT 28292; 2018-09-06 07:45)
DX: M76.821 Posterior tibial tendinitis, right leg (principal); S93.422D Sprain of deltoid ligament of left ankle, subsequent encounter; E66.01 Morbid (severe) obesity due to excess calories; G89.18 Other acute postprocedural pain; Z68.42 Body mass index [BMI] 45.0-49.9, adult; M24.575 Contracture, left foot; M21.072 Valgus deformity, not elsewhere classified, left ankle
CPT/HCPCS: 28300; 28304; 27687; 27691; 27698; 64450; 73630; 76001; 97161; J0690; J1170; J1885; J2060; J2250; J2405; J2704; J2765; J3010